=== PATIENT | male | born 1965 | race African-American/Black ===

== ENCOUNTER 2024-08-28 21:50 | Emergency (ER) | payer MEDICAID, OTHER ==
[~2024-08-28] VITALS: Ht 180.3 cm; Wt 100.0 kg
[2024-08-28 21:56] VITALS: BP 132/78; PULSE 66; RESP 16; TEMP 98.2; O2SAT 100
== END 2024-08-28 23:56 | disposition home or self-care (01) ==
LOC: ER 21:50
DX: K59.09 Other constipation (principal); K64.4 Residual hemorrhoidal skin tags; Z85.118 Personal history of other malignant neoplasm of bronchus and lung
CPT/HCPCS: 99283